=== PATIENT | male | born 1980 | race Two or more races ===

== ENCOUNTER 2017-09-24 06:45 | Emergency (ER) | payer SELFPAY ==
[~2017-09-24] VITALS: Ht 172.7 cm; Wt 68.0 kg
--- NOTE | 2017-09-24 06:50 | NUR ---
PT BB FAMILU FROM HOME C/O MID LOWER BACK PAIN X1 DAY RADIATING PRIMARILY DOWN LEFT LOWER LEG S/P TRYING TO LIFT A ROCK 1 DAY AGO [place]. PT STATES HE HAS HAD BACK PROBLEMS SINCE THE AGE OF 20. PT WAS WHEELCHAIRED TO ER BED 10 BY ER EMT. PT STATES PAIN WORSE WHEN AMBULATING AND CHANGING POSTIONS. PT IS AAOX4. SKIN WNL. RESP EVEN AND UNLABORED. NO S/S OF ACUTE DISTRESS NOTED. VSS. PT PLACED ON MONITOR AND POX. PT SAFETY AND COMFORT MEASURES IN PLACE. BEDSIDE FOR EVDANUTA.
[2017-09-24] MEDS ORDERED: HYDROMORPHONE INJ 2 MG/ML DISP.SYRIN ONE ×2 (06:52→07:42)
[2017-09-24] MEDS ORDERED: ONDANSETRON 4 MG TAB.RAPDIS ONE (06:52)
--- NOTE | 2017-09-24 06:59 | NUR ---
ACCIDENTLY ADMIN 1MG DILAUDID IM INSTEAD OF THE ORDERED 1MG DILAUDID IV ROUTE. MD ANDERSON MADE AWARE.
[2017-09-24] MEDS ORDERED: HYDROMORPHONE 1 MG/1 ML DISP.SYRIN IV ONE ×2 (07:00→08:00)
[2017-09-24] MEDS ORDERED: ONDANSETRON HCL/PF - ER 4 MG/2 ML VIAL IV ONE (07:00)
--- NOTE | 2017-09-24 07:11 | NUR ---
REPORT GIVEN TO BORA VICTORIA FOR KAYLEN.
[2017-09-24] MEDS ORDERED: ONDANSETRON HCL/PF 4 MG/2 ML VIAL ONE (07:19)
--- NOTE | 2017-09-24 07:58 | NUR ---
Patient is resting comfortably in bed. VSS
[2017-09-24] MEDS ORDERED: IV NS 0.9% 1,000 ML IV ONE (08:30)
[2017-09-24 08:35] VITALS: BP 122/70
--- NOTE | 2017-09-24 08:45 | NUR ---
IV removed. Catheter intact and site benign. Pressure and 4x4 applied to site. No bleeding noted.Patient discharged to home in stable condition. Written and verbal after care instructions given. Patient verbalizes understanding of instruction.
== END 2017-09-24 08:47 | disposition home or self-care (01) ==
LOC: ER 06:48
DX: M54.40 Lumbago with sciatica, unspecified side (principal); G89.29 Other chronic pain
CPT/HCPCS: A4606; J1170; J2405; J7030; Q0162; Z7610